=== PATIENT | male | born 1935 | race Caucasian/White ===

== ENCOUNTER → 2016-09-06 | Day surgery (SDC) | payer MEDICARE, BC | LOC: MSO 08:12 | DX: D12.0 Benign neoplasm of cecum (principal); K57.90 Diverticulosis of intestine, part unspecified, without perforation or abscess without bleeding; R19.7 Diarrhea, unspecified; R10.32 Left lower quadrant pain; R10.31 Right lower quadrant pain; Z86.010 Personal history of colon polyps; I10 Essential (primary) hypertension; E11.8 Type 2 diabetes mellitus with unspecified complications; Z79.82 Long term (current) use of aspirin; Z79.84 Long term (current) use of oral hypoglycemic drugs | CPT/HCPCS: 00810; A4649; J7030 ==

== ENCOUNTER 2018-06-03 09:45 | Emergency (ER) | payer MEDICARE, BC ==
[2018-06-03 10:23] LABS: EOS # 0.1 (0.04-0.40); EOS % 0.8 % (0.0-4.0); HEMATOCRIT 47.7 % (42.0-52.0); HEMOGLOBIN 16.2 g/dL (13.5-18.0); LYMPH# 1.7 (1.50-4.00); MEAN CELL VOLUME 93 fl (78-100); MEAN CORPUSCULAR HEMOGLOBIN 32 pg (27-31); MEAN CORPUSCULAR HGB CONC 34 g/dL (33-37); MEAN PLATELET VOLUME 9.5 fl (7.4-10.4); MONO # 0.8 (0.20-0.80); NEU # 7.7 (1.40-6.50); PLATELET COUNT 247 K/mm3 (130-400); RED BLOOD COUNT 5.14 M/mm3 (4.20-5.60); RED CELL DISTRIBUTION WIDTH 12.5 % (11.5-14.5); WHITE BLOOD COUNT 10.3 K/mm3 (4.8-10.8)
[2018-06-03] MEDS ORDERED: HCTZ 25MG25 MG PO (10:26)
[2018-06-03 10:36] LABS: ALBUMIN 4.3 g/dL (3.5-5.0); CALCIUM 9.3 mg/dL (8.4-10.2); POTASSIUM 4.2 mmol/L (3.6-5.0); TOTAL PROTEIN 7.7 g/dL (6.3-8.2)
[2018-06-03] MEDS ORDERED: SIMVASTATIN40 M1 PO (10:37)
[2018-06-03] MEDS ORDERED: PROPRANOLOL HCL40 M2 PO (10:38)
[2018-06-03] MEDS ORDERED: MORGIDOX 1X100100 MG PO (10:38)
[2018-06-03] MEDS ORDERED: METFORMIN HYD1000 MG PO (10:38)
[2018-06-03] MEDS ORDERED: RT ALBUTEROL CC18 GM IH (10:39)
[2018-06-03] MEDS ORDERED: FOSINOPRIL SODI20 M1 PO (10:40)
[2018-06-03] MEDS ORDERED: 8 HOUR650 MG PO (10:41)
[2018-06-03 13:00] LABS: URINE APPEARANCE CLEAR; URINE BILIRUBIN NEGATIVE (NEGATIVE); URINE BLOOD NEGATIVE (NEGATIVE); URINE COLOR YELLOW; URINE GLUCOSE NEGATIVE (NEGATIVE); URINE KETONE NEGATIVE (NEGATIVE); URINE LEUKOCYTE ESTERASE NEGATIVE (NEGATIVE); URINE MUCUS PRESENT (NOT PRESENT); URINE NITRATE NEGATIVE (NEGATIVE); URINE PROTEIN(semi-quant) NEGATIVE (NEGATIVE); URINE UROBILINOGEN NORMAL (NORMAL); URINE WBC 0-1 /hpf (0-3)
[2018-06-03 13:57] VITALS: BP 132/71
== END 2018-06-03 13:58 | disposition short-term general hospital (02) ==
LOC: ED 09:45
PROVIDERS: Family Medicine
DX: I21.4 Non-ST elevation (NSTEMI) myocardial infarction (principal); E11.9 Type 2 diabetes mellitus without complications; I10 Essential (primary) hypertension; E78.5 Hyperlipidemia, unspecified; Z79.84 Long term (current) use of oral hypoglycemic drugs; Z98.890 Other specified postprocedural states
CPT/HCPCS: J1644; J3490; J7030

== ENCOUNTER 2018-06-21 14:13 | Inpatient (IN) | payer MEDICARE, BC ==
[~2018-06-21] VITALS: Ht 195.6 cm; Wt 108.7 kg
[~2018-06-21 14:13] MED LIST: 8 HOUR650 MG PO; FOSINOPRIL SODI20 M1 PO; HCTZ 25MG25 MG PO; METFORMIN HYD1000 MG PO; MORGIDOX 1X100100 MG PO; PROPRANOLOL HCL40 M2 PO; RT ALBUTEROL CC18 GM IH; SIMVASTATIN40 M1 PO
[2018-06-26 17:57] VITALS: BP 155/68
[2018-06-26] MEDS ORDERED: CLOPIDOGREL75 M2 PO (19:15)
[2018-06-26] MEDS ORDERED: POTASSIUM CHLO10 ME6 PO (19:17)
[2018-06-26] MEDS ORDERED: FUROSEMIDE40 MG PO (19:17)
[2018-06-26] MEDS ORDERED: LOPRESSOR 225 MG/TAB PO (19:19)
[2018-06-26] MEDS ORDERED: ASPIRIN ADULT L81 M3 PO (19:49)
[2018-06-26] MEDS ORDERED: PACERONE200 MG PO (19:50)
[2018-06-26] MEDS ORDERED: TYLENOL 325MG325 MG PO (19:51)
[2018-06-26] MEDS ORDERED: ULTRAM50 M1 PO (19:53)
[2018-06-26 19:59] LABS: EOS # 0.2 (0.04-0.40); EOS % 2.8 % (0.0-4.0); HEMATOCRIT 37.1 % (42.0-52.0); HEMOGLOBIN 11.5 g/dL (13.5-18.0); LYMPH# 1.2 (1.50-4.00); MEAN CELL VOLUME 99 fl (78-100); MEAN CORPUSCULAR HEMOGLOBIN 31 pg (27-31); MEAN CORPUSCULAR HGB CONC 31 g/dL (33-37); MEAN PLATELET VOLUME 8.8 fl (7.4-10.4); MONO # 0.6 (0.20-0.80); NEU # 5.9 (1.40-6.50); PLATELET COUNT 386 K/mm3 (130-400); RED BLOOD COUNT 3.74 M/mm3 (4.20-5.60); RED CELL DISTRIBUTION WIDTH 14.1 % (11.5-14.5); WHITE BLOOD COUNT 8.2 K/mm3 (4.8-10.8)
[2018-06-26 20:11] LABS: PARTIAL THROMBOPLASTIN TIME 20.7 SECONDS (21.0-32.0); PROTHROMBIN TIME 11.9 SECONDS (9.0-12.0)
[2018-06-26 20:17] LABS: CALCIUM 8.9 mg/dL (8.8-10.0); POTASSIUM 4.6 mmol/L (3.5-5.1); TOTAL BILIRUBIN 0.7 mg/dL (0.2-1.2); TOTAL PROTEIN 6.2 g/dL (6.2-8.1)
[2018-06-26 22:35] LABS: URINE APPEARANCE CLEAR; URINE BILIRUBIN NEGATIVE (NEGATIVE); URINE BLOOD NEGATIVE (NEGATIVE); URINE COLOR YELLOW; URINE GLUCOSE NEGATIVE (NEGATIVE); URINE KETONE NEGATIVE (NEGATIVE); URINE LEUKOCYTE ESTERASE NEGATIVE (NEGATIVE); URINE NITRATE NEGATIVE (NEGATIVE); URINE PROTEIN(semi-quant) NEGATIVE (NEGATIVE); URINE UROBILINOGEN NORMAL (NORMAL)
[2018-06-26 22:36] LABS: URINE WBC 0-1 /hpf (0-3)
[2018-06-26 22:37] LABS: URINE MUCUS PRESENT (NOT PRESENT)
[2018-06-27 06:19] VITALS: BP 112/58
[2018-06-27 19:17] VITALS: BP 111/58
[2018-06-28 06:22] VITALS: BP 129/58
[2018-06-28 18:06] VITALS: BP 117/62
[2018-06-29 06:13] VITALS: BP 122/66
[2018-06-29 18:23] VITALS: BP 123/77
[2018-06-30 06:23] VITALS: BP 100/52
[2018-06-30 18:02] VITALS: BP 115/63
[2018-07-01 06:01] VITALS: BP 123/65
[2018-07-01 18:20] VITALS: BP 103/53
[2018-07-02 05:46] VITALS: BP 95/52
[2018-07-02 18:54] VITALS: BP 111/58
[2018-07-03 05:54] VITALS: BP 121/62
[2018-07-03 18:33] VITALS: BP 116/43
[2018-07-04 06:08] VITALS: BP 119/62
[2018-07-04 18:19] VITALS: BP 123/62
[2018-07-05 06:03] VITALS: BP 119/62
[2018-07-05] MEDS ORDERED: PACERONE200 MG PO (09:50)
[2018-07-05] MEDS ORDERED: CLOPIDOGREL75 M2 PO (09:50)
[2018-07-05] MEDS ORDERED: ULTRAM50 M1 PO (09:50)
[2018-07-05] MEDS ORDERED: LOPRESSOR 225 MG/TAB PO (11:01)
== END 2018-07-05 11:16 | disposition home health service (06) | DRG 947 ==
LOC: MED/SURG 14:13
PROVIDERS: Nurse Practitioner; ADMIT Nurse Practitioner Primary Care
DX: R53.81 Other malaise (principal); I21.4 Non-ST elevation (NSTEMI) myocardial infarction; J95.811 Postprocedural pneumothorax; T81.49XA Infection following a procedure, other surgical site, initial encounter; L03.116 Cellulitis of left lower limb; I12.9 Hypertensive chronic kidney disease with stage 1 through stage 4 chronic kidney disease, or unspecified chronic kidney disease; N18.3 Chronic kidney disease, stage 3 (moderate); E11.22 Type 2 diabetes mellitus with diabetic chronic kidney disease; E78.2 Mixed hyperlipidemia; I25.10 Atherosclerotic heart disease of native coronary artery without angina pectoris; Z95.1 Presence of aortocoronary bypass graft; I48.0 Paroxysmal atrial fibrillation; Z88.8 Allergy status to other drugs, medicaments and biological substances
CPT/HCPCS: J1650

== ENCOUNTER → 2018-07-21 | Outpatient (CLI) | payer MEDICARE, BC ==
[2018-07-05 06:03] VITALS: BP 119/62
[~2018-07-21] MED LIST changes: +ASPIRIN ADULT L81 M3 PO; +CLOPIDOGREL75 M2 PO; +FUROSEMIDE40 MG PO; +LOPRESSOR 225 MG/TAB PO; +PACERONE200 MG PO; +POTASSIUM CHLO10 ME6 PO; +TYLENOL 325MG325 MG PO; +ULTRAM50 M1 PO
[2018-07-21 13:53] LABS: CALCIUM 9.1 mg/dL (8.3-10.5); POTASSIUM 4.3 mmol/L (3.5-5.1)
== END ==
LOC: LAB 11:27
PROVIDERS: Family Medicine
DX: Z79.899 Other long term (current) drug therapy (principal)

== ENCOUNTER 2018-11-02 09:15 | Outpatient (RCR) | payer MEDICARE, BC | END 2018-11-05 | disposition home or self-care (01) | LOC: CARDREHAB | DX: Z48.812 Encounter for surgical aftercare following surgery on the circulatory system (principal); Z95.1 Presence of aortocoronary bypass graft ==

== ENCOUNTER 2018-11-13 09:00 | Outpatient (RCR) | payer MEDICARE, BC | END 2019-02-04 | disposition home or self-care (01) | LOC: CARDREHAB | DX: Z48.812 Encounter for surgical aftercare following surgery on the circulatory system (principal); Z95.5 Presence of coronary angioplasty implant and graft ==

== ENCOUNTER → 2019-03-15 | Outpatient (CLI) | payer MEDICARE | LOC: RAD 12:23 | DX: M47.26 Other spondylosis with radiculopathy, lumbar region (principal); M48.061 Spinal stenosis, lumbar region without neurogenic claudication ==

== ENCOUNTER 2019-03-29 08:30 | Outpatient (RCR) | payer MEDICARE | END 2019-03-29 09:00 | disposition still patient (30) | LOC: PT 08:30 | DX: M25.551 Pain in right hip (principal); M25.552 Pain in left hip; R26.9 Unspecified abnormalities of gait and mobility ==

== ENCOUNTER → 2020-03-12 | Outpatient (CLI) | payer MEDICARE, BC ==
[2020-03-12 10:10] LABS: URINE WBC 0 /hpf (0-3)
[2020-03-12 10:21] LABS: ALBUMIN 4.1 g/dL (3.4-4.8); POTASSIUM 4.9 mmol/L (3.5-5.1)
[2020-03-12 10:22] LABS: CALCIUM 8.8 mg/dL (8.3-10.5)
[2020-03-12 10:24] LABS: TOTAL PROTEIN 7.3 g/dL (6.2-8.1)
[2020-03-12 10:27] LABS: URINE APPEARANCE CLEAR; URINE BILIRUBIN NEGATIVE (NEGATIVE); URINE BLOOD 50 ery/uL (NEGATIVE); URINE COLOR YELLOW; URINE GLUCOSE NEGATIVE (NEGATIVE); URINE KETONE NEGATIVE (NEGATIVE); URINE LEUKOCYTE ESTERASE NEGATIVE (NEGATIVE); URINE MUCUS PRESENT (NOT PRESENT); URINE NITRATE NEGATIVE (NEGATIVE); URINE PROTEIN(semi-quant) TRACE mg/dL (NEGATIVE); URINE UROBILINOGEN NORMAL (NORMAL)
[2020-03-12 10:46] LABS: EOS # 0.2 (0.04-0.40); EOS % 3.5 % (0.0-4.0); HEMOGLOBIN 16.1 g/dL (13.5-18.0); LYMPH# 1.4 (1.50-4.00); MEAN CELL VOLUME 97 fl (78-100); MEAN CORPUSCULAR HEMOGLOBIN 31 pg (27-31); MEAN CORPUSCULAR HGB CONC 32 g/dL (33-37); MEAN PLATELET VOLUME 10.1 fl (7.4-10.4); MONO # 0.5 (0.20-0.80); NEU # 3.3 (1.40-6.50); PLATELET COUNT 160 K/mm3 (130-400); RED BLOOD COUNT 5.15 M/mm3 (4.20-5.60); RED CELL DISTRIBUTION WIDTH 13.6 % (11.5-14.5); WHITE BLOOD COUNT 5.4 K/mm3 (4.8-10.8)
== END ==
LOC: RAD 09:48
PROVIDERS: Internal Medicine Nephrology
DX: E11.21 Type 2 diabetes mellitus with diabetic nephropathy (principal); E11.22 Type 2 diabetes mellitus with diabetic chronic kidney disease; I12.9 Hypertensive chronic kidney disease with stage 1 through stage 4 chronic kidney disease, or unspecified chronic kidney disease; N18.31 Chronic kidney disease, stage 3a; N26.1 Atrophy of kidney (terminal)

== ENCOUNTER → 2020-03-14 | Outpatient (CLI) | payer MEDICARE, BC | LOC: LAB 16:00 | PROVIDERS: Internal Medicine Nephrology | DX: E11.21 Type 2 diabetes mellitus with diabetic nephropathy (principal); E11.22 Type 2 diabetes mellitus with diabetic chronic kidney disease; I12.9 Hypertensive chronic kidney disease with stage 1 through stage 4 chronic kidney disease, or unspecified chronic kidney disease; N18.31 Chronic kidney disease, stage 3a ==

== ENCOUNTER → 2020-07-21 | Outpatient (CLI) | payer MEDICARE, BC ==
[2020-07-21 16:57] LABS: POTASSIUM 4.5 mmol/L (3.5-5.1)
[2020-07-21 16:58] LABS: CALCIUM 8.9 mg/dL (8.3-10.5)
== END ==
LOC: LAB 15:07
PROVIDERS: Internal Medicine Nephrology
DX: N18.31 Chronic kidney disease, stage 3a (principal); N26.1 Atrophy of kidney (terminal)

== ENCOUNTER 2021-07-19 08:54 | Emergency (ER) | payer MEDICARE, BC ==
[~2021-07-19] VITALS: Ht 195.6 cm; Wt 109.1 kg
[2021-07-19] MEDS ORDERED: ALLOPURINOL300 M1 PO (09:34)
[2021-07-19] MEDS ORDERED: CLOPIDOGREL PO (09:38)
[2021-07-19] MEDS ORDERED: ZESTRIL5 M1 PO (09:39)
[2021-07-19 11:00] LABS: BASO # 0.03 K/mm3 (0.02-0.10); EOS % 1.3 % (0.0-4.0); HEMATOCRIT 45.8 % (42.0-52.0); HEMOGLOBIN 14.9 g/dL (13.5-18.0); LYMPH# 1.01 K/mm3 (1.50-4.00); MEAN CELL VOLUME 95 fl (78-100); MEAN CORPUSCULAR HEMOGLOBIN 31 pg (27-31); MEAN CORPUSCULAR HGB CONC 33 g/dL (33-37); MEAN PLATELET VOLUME 9.4 fl (7.4-10.4); MONO # 0.66 K/mm3 (0.20-0.80); NEU # 5.67 K/mm3 (1.40-6.50); PLATELET COUNT 179 K/mm3 (130-400); RED BLOOD COUNT 4.84 M/mm3 (4.20-5.60); RED CELL DISTRIBUTION WIDTH 13.7 % (11.5-14.5); WHITE BLOOD COUNT 7.5 K/mm3 (4.8-10.8)
[2021-07-19 11:09] LABS: CALCIUM 9.3 mg/dL (8.3-10.5)
[2021-07-19] MEDS ORDERED: VOLTAREN ARTHRI20 GM TP (11:45)
[2021-07-19] MEDS ORDERED: NORCO 325 MG-51 TA1 PO (11:45)
[2021-07-19 12:05] VITALS: BP 166/83
== END 2021-07-19 12:15 | disposition home or self-care (01) ==
LOC: ED 08:54
PROVIDERS: Family Medicine
DX: G56.01 Carpal tunnel syndrome, right upper limb (principal); M25.511 Pain in right shoulder; M25.551 Pain in right hip; M25.552 Pain in left hip

== ENCOUNTER → 2021-11-12 | Outpatient (CLI) | payer MEDICARE, BC ==
[~2021-11-12] MED LIST changes: +ALLOPURINOL300 M1 PO; +CLOPIDOGREL PO; +NORCO 325 MG-51 TA1 PO; +VOLTAREN ARTHRI20 GM TP; +ZESTRIL5 M1 PO
[2021-11-12 13:33] LABS: BASO # 0.04 K/mm3 (0.02-0.10); EOS # 0.13 K/mm3 (0.04-0.40); EOS % 1.4 % (0.0-4.0); HEMOGLOBIN 13.9 g/dL (13.5-18.0); LYMPH# 1.55 K/mm3 (1.50-4.00); MEAN CELL VOLUME 95 fl (78-100); MEAN CORPUSCULAR HEMOGLOBIN 31 pg (27-31); MEAN CORPUSCULAR HGB CONC 32 g/dL (33-37); MONO # 0.74 K/mm3 (0.20-0.80); NEU # 6.48 K/mm3 (1.40-6.50); PLATELET COUNT 232 K/mm3 (130-400); RED BLOOD COUNT 4.52 M/mm3 (4.20-5.60); RED CELL DISTRIBUTION WIDTH 13.8 % (11.5-14.5)
[2021-11-12 13:43] LABS: ALBUMIN 3.6 g/dL (3.4-4.8); POTASSIUM 4.1 mmol/L (3.5-5.1)
[2021-11-12 13:44] LABS: CALCIUM 9.4 mg/dL (8.3-10.5)
[2021-11-12 13:46] LABS: TOTAL PROTEIN 6.6 g/dL (6.2-8.1)
[2021-11-12 13:48] LABS: TOTAL BILIRUBIN 0.6 mg/dL (0.2-1.2)
[2021-11-12 15:19] LABS: ERYTHROCYTE SEDIMENTATION RATE 17 mm/hr (0-20)
== END ==
LOC: LAB 13:09
PROVIDERS: Internal Medicine
DX: E11.9 Type 2 diabetes mellitus without complications (principal); K90.9 Intestinal malabsorption, unspecified; H91.93 Unspecified hearing loss, bilateral; I51.9 Heart disease, unspecified; G62.9 Polyneuropathy, unspecified